=== PATIENT | male | born 1990 | race Two or more races ===

== ENCOUNTER 2017-03-20 | Observation (INO) | payer SELFPAY ==
[2017-03-20] MEDS ORDERED: METRONIDAZOLE 500 MG/NS RTU 100 ML IV ONE (01:17)
[2017-03-20] MEDS ORDERED: CIPROFLOXACIN 400 MG/D5W RTU 400 MG/200 ML RTUPB IV ONE (01:19)
[2017-03-20] MEDS ORDERED: NORMAL SALINE 1000 ML 1,000 ML IV PRN ×3 (01:20→11:09)
[2017-03-20] MEDS ORDERED: MORPHINE SULFATE 10 MG/ML INJ IV ONE (01:21)
[2017-03-20] MEDS ORDERED: ONDANSETRON HCL INJ/PF 4 MG/2 ML SDV IV ONE (01:21)
--- NOTE | 2017-03-20 01:22 | ER Document Report ---
ED GI/ - General Chief Complaint: Rectal Pain Stated Complaint: RECTAL PAIN Time Seen by Provider: 03/20/17 01:09 Notes: Patient is a 27-year-old male presents emergency department complaining of rectal pain. Patient states that he is concerned that he has an abscess in that location. He states he had one previously approximately 2012 that required surgery. Patient states he has had this pain for about 3 days has become more severe. He states he is not able to sit at all. States it hurts to have a bowel movement he has not been able to do so secondary to the pain. Denies any known fevers but admits to chills. Otherwise patient states that he has a history of high blood pressure but does not take medication. TRAVEL OUTSIDE OF THE [place] IN LAST 30 DAYS: No - Related Data Allergies/Adverse Reactions: No Known Allergies Allergy (Verified 04/10/16 19:59) Home Medications: Current Home Medications No Home Medications 03/20/17 [History] Past Medical History - Social History Smoking Status: Smoker,Current Status Unk Family History: CAD, Hyperlipidemia, Hypertension, Other - Coronary artery disease with both grandfathers having MIs in their 40s, and his father having an MA in his 30s Patient has suicidal ideation: No Patient has homicidal ideation: No - Past Medical History Cardiac Medical History: Reports: Hx Hypercholesterolemia - He assumes he has elevated cholesterol based on family history., Hx Hypertension Neurological Medical History: Reports: Hx Migraine Endocrine Medical History: Reports: Hx Diabetes Mellitus Type 2 Renal/ Medical History: Denies: Hx Peritoneal Dialysis Musculoskeltal Medical History: Reports Hx Musculoskeletal Trauma - fx rt leg Past Surgical History: Reports: Hx Abdominal Surgery - Immunizations Hx Diphtheria, Pertussis, Tetanus Vaccination: No Review of Systems - Review of Systems Constitutional: See HPI Cardiovascular: No symptoms reported Respiratory: No symptoms reported Gastrointestinal: See HPI Male Genitourinary: See HPI -: Yes All other systems reviewed and negative Physical Exam - Vital signs Vitals: Temp Pulse Resp BP Pulse Ox 98.6 F 113 H 22 H 140/80 H 100 03/20/17 00:04 03/20/17 00:04 03/20/17 00:04 03/20/17 00:04 03/20/17 00:04 - General General appearance: Appears well, Alert In distress: None - Respiratory Respiratory status: No respiratory distress Chest status: Nontender Breath sounds: Normal Chest palpation: Normal - Cardiovascular Rhythm: Regular Heart sounds: Normal auscultation, S1 appreciated, S2 appreciated Gallop: None auscultated Pulses: Normal: Radial Normal capillary refill: Yes - Abdominal Inspection: Normal Distension: No distension Bowel sounds: Normal Tenderness: Nontender Organomegaly: No organomegaly - Rectal Tenderness: Yes - Tenderness, induration, erythema around the rectum on the left gluteal clef Hemorrhoids: None Prostate: Normal. No: Tender - Skin Skin Temperature: Warm Skin Moisture: Dry Skin irregularity: Abscess - Perirectal abscess with surrounding induration and tenderness Course - Re-evaluation Re-evalutation: 03/20/17 02:05 Patient is a 27-year-old male is hemodynamic stable, no acute distress afebrile. Patient has been discussed with Dr. Hamilton who agrees to admit the patient to be kept n.p.o. initiated on IV antibiotics and IV fluids. Discussed with patient who agrees with plan. Patient to go to the OR later today. - Vital Signs Vital signs: Temp Pulse Resp BP Pulse Ox 98.7 F 88 18 125/45 L 98 03/20/17 03:56 03/20/17 03:56 03/20/17 03:56 03/20/17 03:56 03/20/17 03:52 - Laboratory Result Diagrams: 03/20/17 02:20 03/20/17 02:20 Discharge - Discharge Clinical Impression: Perirectal abscess Condition: Stable Disposition: ADMITTED INPATIENT Admitting Provider: Surgicalist Uday Hamilton Unit Admitted: Surgical Floor
--- NOTE | 2017-03-20 02:02 | PDOC H&P ---
History of Present Illness Admission Date/PCP: 03/20/2017 History of Present Illness: DUSTY MCCORMICK is a 27 year old male who started complaining of left perirectal pains about 3 days ago. Today got worse those he continued to work. At work he was having difficulty ambulating and then went to the emergency room after work. He denies any fever no chills. Admits to having pains with bowel movement. No dysuria. No nausea or vomiting. Past Medical History Cardiac Medical History: Reports: Hyperlipidema - He assumes he has elevated cholesterol based on family history., Hypertension Neurological Medical History: Reports: Migraine Endocrine Medical History: Reports: Diabetes Mellitus Type 2 Past Surgical History Past Surgical History: Had I&D of abscess of the perineal area about 2 years ago Social History Smoking Status: Unknown if Ever Smoked Frequency of Alcohol Use: None Hx Recreational Drug Use: No Family History Family History: CAD, Hyperlipidemia, Hypertension, Other - Coronary artery disease with both grandfathers having MIs in their 40s, and his father having an [place] in his 30s Parental Family History Reviewed: Yes - CAD,DM Children Family History Reviewed: Yes Sibling(s) Family History Reviewed.: Yes Medication/Allergy Home Medications: Prednisone [Deltasone 10 mg Tablet] 10 mg PO ASDIR PRN #33 tablet 05/06/14 Albuterol Sulfate [Albuterol Sulfate Hfa] 1 - 2 puff IH Q4 PRN 05/30/14 Naproxen 500 mg PO BIDP PRN #20 tablet 04/10/15 Promethazine HCl [Phenergan 25 mg Tablet] 0.5 - 1 tab PO Q6H PRN #15 tablet Metoclopramide HCl [Reglan 10 mg Tablet] 2 tab PO Q6HP PRN #30 tablet 09/01/15 Allergies/Adverse Reactions: No Known Allergies Allergy (Verified 04/10/16 19:59) Review of Systems All systems: reviewed and no additional remarkable complaints except as stated Constitutional: PRESENT: other - No fever or chills Eyes: PRESENT: other - No visible disturbances Ears: PRESENT: other - No hearing problems Nose, Mouth, and Throat: PRESENT: sore throat - No sore throat Cardiovascular: PRESENT: chest pain - No chest pain Respiratory: PRESENT: cough - No cough Gastrointestinal: PRESENT: other - No diarrhea, constipation, vomiting or nausea Genitourinary: PRESENT: other - No difficulty voiding Musculoskeletal: PRESENT: other - No joint pain Integumentary: PRESENT: other - Skin rash Neurological: PRESENT: other - No seizures or syncopal episode Psychiatric: PRESENT: other - No anxiety Endocrine: PRESENT: other - No polyuria nor polyphagia or polydipsia Hematologic/Lymphatic: PRESENT: other - No easy bruisability or lymphadenopathy Physical Exam Vital Signs: Temp Pulse Resp BP Pulse Ox 98.6 F 113 H 22 H 140/80 H 100 03/20/17 00:04 03/20/17 00:04 03/20/17 00:04 03/20/17 00:04 03/20/17 00:04 Intake & Output 03/18/17 03/19/17 03/20/17 06:59 06:59 06:59 Weight 122.6 kg General appearance: PRESENT: mild distress, obese Head exam: PRESENT: atraumatic, normocephalic Eye exam: PRESENT: conjunctiva pink, PERRLA Ear exam: PRESENT: normal external ear exam Mouth exam: PRESENT: moist Throat exam: ABSENT: other - No tonsillar enlargement Neck exam: PRESENT: other - Neck is supple and no adenopathy or thyromegaly Respiratory exam: PRESENT: other - No rales or wheezing Cardiovascular exam: PRESENT: RRR, other - Regular rate and rhythm Pulses: PRESENT: normal dorsalis pedis pul Vascular exam: PRESENT: normal capillary refill GI/Abdominal exam: PRESENT: soft, other - Nontender Rectal exam: PRESENT: other - Positive for swelling and redness and tenderness of the left perirectal area and just a little anterior Gentrourinary exam: PRESENT: other - Normal Extremities exam: PRESENT: full ROM Musculoskeletal exam: PRESENT: full ROM Neurological exam: PRESENT: alert, oriented to person, oriented to place, oriented to time, oriented to situation Psychiatric exam: PRESENT: normal mood Focused psych exam: PRESENT: other - Normal affect Skin exam: PRESENT: dry, warm Results Impressions: Left perirectal abscess Assessment & Plan - Diagnosis (1) Perirectal abscess Is this a current diagnosis for this admission?: Yes - Time Time Spent: 30 to 50 Minutes Anticipated discharge: Home Within: within 48 hours - Inpatient Certification Based on my medical assessment, after consideration of the patient's comorbidities, presenting symptoms, or acuity I expect that the services needed warrant INPATIENT care.: Yes I certify that my determination is in accordance with my understanding of Medicare's requirements for reasonable and necessary INPATIENT services [42 CFR 412.3e].: Yes Medical Necessity: Need For IV Fluids, Need for Pain Control, Need for IV Antibiotics, Need for Surgery
[2017-03-20 02:40] LABS: ABSOLUTE BASOPHILS # (AUTO) 0.1 10^3/uL (0.0-0.2); ABSOLUTE EOSINOPHILS # (AUTO) 0.1 10^3/uL (0.0-0.6); ABSOLUTE LYMPHOCYTES (AUTO) 1.7 10^3/uL (0.5-4.7); ABSOLUTE MONOCYTES (AUTO) 1.2 10^3/uL (0.1-1.4); ABSOLUTE NEUT (AUTO) 12.9 10^3/uL (1.7-8.2); BASOPHILS % (AUTO) 0.6 % (0-2); EOSINOPHILS % (AUTO) 0.6 % (0-6); HEMOGLOBIN 14.2 g/dL (13.5-17.0); HGB HCT DIFFERENCE 1.6; LYMPHOCYTES % (AUTO) 10.9 % (13-45); MEAN CORPUSCULAR HEMOGLOBIN 30.5 pg (27.0-33.4); MEAN CORPUSCULAR HGB CONC 34.7 g/dL (32.0-36.0); MEAN CORPUSCULAR VOLUME 88 fl (80-97); MONOCYTES % (AUTO) 7.3 % (3-13); RED BLOOD COUNT 4.66 10^6/uL (4.35-5.55); RED CELL DISTRIBUTION WIDTH 13.8 % (11.5-14.0); SEGMENTED NEUTROPHILS % (AUTO) 80.6 % (42-78)
[2017-03-20 02:56] LABS: ALANINE AMINOTRANSFERASE 32 U/L (21-72); ALBUMIN 4.2 g/dL (3.5-5.0); ALKALINE PHOSPHATASE 88 U/L (38-126); ANION GAP 14 (5-19); ASPARTATE AMINO TRANSFERASE 20 U/L (17-59); BILIRUBIN,DIRECT 0.5 mg/dL (0.0-0.4); BILIRUBIN,TOTAL 0.8 mg/dL (0.2-1.3); BLOOD UREA NITROGEN 15 mg/dL (7-20); CALCIUM 9.3 mg/dL (8.4-10.2); CARBON DIOXIDE 22 mmol/L (22-30); CHLORIDE 107 mmol/L (98-107); CREATININE RESULT 1.02 mg/dL (0.52-1.25); GLUCOSE 159 mg/dL (75-110); POTASSIUM 3.8 mmol/L (3.6-5.0); SODIUM 142.6 mmol/L (137-145); TOTAL PROTEIN 6.9 g/dL (6.3-8.2)
[2017-03-20] MEDS: MORPHINE SULFATE 10 MG/ML INJ IV PRN ×6 (05:00→20:42)
[2017-03-20] MEDS ORDERED: ONDANSETRON HCL INJ/PF 4 MG/2 ML SDV ONE (08:38)
[2017-03-20] MEDS ORDERED: MIDAZOLAM 2 MG/2 ML INJ ONE ×2 (08:38→09:50)
[2017-03-20] MEDS ORDERED: PROPOFOL INJ 200 MG/20 ML VIAL IV ONE (08:38)
[2017-03-20] MEDS ORDERED: FENTANYL CITRATE INJ/PF 100 MCG/2 ML AMPUL ONE (08:38)
[2017-03-20 09:28] LABS: URINE BARBITURATES SCREEN NEGATIVE; URINE METHADONE SCREEN NEGATIVE; URINE PHENCYCLIDINE SCREEN NEGATIVE
[2017-03-20 09:29] LABS: URINE OPIATES LOW UNCONFIRMED POSITIVE
[2017-03-20] MEDS ORDERED: LIDOCAINE 1% INJ-PF (10 MG/ML) 30 ML SDV ONE (09:35)
[2017-03-20] MEDS ORDERED: ONDANSETRON HCL INJ/PF 4 MG/2 ML SDV IV PRN (11:15)
[2017-03-20] MEDS: METRONIDAZOLE 500 MG/NS RTU 100 ML IV SCH ×2 (11:59→18:37)
[2017-03-20] MEDS ORDERED: ACETAMINOPHEN 325 MG TABLET PO PRN (13:29)
[2017-03-20] MEDS ORDERED: ACETAMINOPHEN 325 MG TABLET ONE (13:31)
[2017-03-20] MEDS ORDERED: KETOROLAC TROMETHAMINE INJ/PF 30 MG/1 ML SDV ONE (13:32)
[2017-03-20] MEDS: KETOROLAC TROMETHAMINE INJ/PF 30 MG/1 ML SDV IV SCH ×2 (14:26→21:38)
--- NOTE | 2017-03-20 14:42 | OPERATIVE REPORT E ---
Operative Report NAME: DUSTY MCCORMICK : 1990 AGE: 27Y DATE OF SURGERY: 03/20/2017 ROOM: 425 PREOPERATIVE DIAGNOSIS: Abscess left perirectal and perineal area. POSTOPERATIVE DIAGNOSIS: Abscess left perirectal and perineal area. OPERATION: Incision and drainage of left perirectal and perineal abscess. SURGEON: MARQUIS FARMER M.D. ANESTHESIA: Local MAC INDICATIONS: This is a 27-year-old quite obese male who complained of pains along the left perirectal area for the past 3 to 4 days. Patient apparently took cocaine about 3 to 4 days ago. His urine toxicology is positive and therefore Anesthesia decided to just give him MAC and for me to give 1% Xylocaine without epinephrine. PROCEDURE: After adequate IV sedation, patient was placed in lithotomy position and the perineal area prepped and draped in the usual sterile fashion. Local anesthesia infiltrated over the inflamed area of the left perirectal area towards the perineum. The swelling roughly measured about 10 cm long. It was through a previous thickened scar of this area. Local anesthesia, about 30 mL, was then infiltrated over the previous scar and an incision was made. The incision was made after appropriate timeout was called. The subcu and scarring was quite thick, worsened with the 30 ccs of local anesthesia, roughly about 2 to 3 cm deep. Finally, I was able to break into a pocket of pus which was foul-smelling, yellowish, dark fluid. Cultures were obtained. The pocket was dilated and palpated with the index finger and tunnelling up into the area of the perineum. The pocket area was further enlarged with scissors but unfortunately, patient has been quite uncooperative and Anesthesia was not willing to give more sedation because of the presence of cocaine in his urine. Therefore, the area was then irrigated with saline solution and iodoform packing was placed. I thought the area is completely drained of pus. This may be a temporary procedure just to emergently relieve the abscess site but unfortunately unable to extend the incision as far proximally to the perineum as possible because of patient moving. . At any rate, the area was then packed with 1/2-inch iodoform gauze, almost a whole bottle of gauze was placed. The area was then covered with sterile 4 x 4 and ABD pad. Patient tolerated relatively well. Needle, instrument, and sponge count were all correct. Estimated blood loss was about 30 mL. The patient was brought back to the Recovery Room in satisfactory condition. DICTATING PHYSICIAN: MARQUIS FARMER M.D. [id number] PHY#: [id number] ID: [id number] JOB#: [id number] ACCT: [id number] cc:MARQUIS FARMER M.D. > MTDD
[2017-03-20] MEDS: CIPROFLOXACIN 400 MG/D5W RTU 400 MG/200 ML RTUPB IV SCH (17:20)
[2017-03-21] MEDS: MORPHINE SULFATE 10 MG/ML INJ IV PRN ×7 (00:25→23:38)
[2017-03-21] MEDS: METRONIDAZOLE 500 MG/NS RTU 100 ML IV SCH ×3 (02:19→17:05)
[2017-03-21 04:48] LABS: URINE BARBITURATES SCREEN NEGATIVE; URINE METHADONE SCREEN NEGATIVE; URINE PHENCYCLIDINE SCREEN NEGATIVE
[2017-03-21 04:56] LABS: URINE OPIATES LOW UNCONFIRMED POSITIVE
[2017-03-21] MEDS: CIPROFLOXACIN 400 MG/D5W RTU 400 MG/200 ML RTUPB IV SCH ×2 (05:19→18:11)
[2017-03-21] MEDS: KETOROLAC TROMETHAMINE INJ/PF 30 MG/1 ML SDV IV SCH ×3 (05:21→21:09)
[2017-03-21 05:30] LABS: ABSOLUTE EOSINOPHILS # (AUTO) 0.4 10^3/uL (0.0-0.6); ABSOLUTE LYMPHOCYTES (AUTO) 1.5 10^3/uL (0.5-4.7); ABSOLUTE MONOCYTES (AUTO) 0.8 10^3/uL (0.1-1.4); ABSOLUTE NEUT (AUTO) 8.4 10^3/uL (1.7-8.2); BASOPHILS % (AUTO) 0.4 % (0-2); EOSINOPHILS % (AUTO) 3.5 % (0-6); HEMATOCRIT 38.8 % (37.9-51.0); HEMOGLOBIN 13.8 g/dL (13.5-17.0); HGB HCT DIFFERENCE 2.6; LYMPHOCYTES % (AUTO) 13.3 % (13-45); MEAN CORPUSCULAR HEMOGLOBIN 31.4 pg (27.0-33.4); MEAN CORPUSCULAR HGB CONC 35.5 g/dL (32.0-36.0); MEAN CORPUSCULAR VOLUME 88 fl (80-97); RED CELL DISTRIBUTION WIDTH 13.7 % (11.5-14.0); SEGMENTED NEUTROPHILS % (AUTO) 75.8 % (42-78)
[2017-03-21 05:55] LABS: GLUCOSE 144 mg/dL (75-110); POTASSIUM 4.3 mmol/L (3.6-5.0)
[2017-03-21 05:56] LABS: BLOOD UREA NITROGEN 12 mg/dL (7-20); CALCIUM 8.4 mg/dL (8.4-10.2); CARBON DIOXIDE 25 mmol/L (22-30); CREATININE RESULT 0.94 mg/dL (0.52-1.25); SODIUM 138.9 mmol/L (137-145)
[2017-03-21 06:10] LABS: ANION GAP 6 (5-19); CHLORIDE 108 mmol/L (98-107)
--- NOTE | 2017-03-21 10:07 | PDOC PROGRESS REPORT ---
Subjective Progress Note for:: 03/21/17 Subjective:: Patient states he is better. He has not changed his initial wound packing. Physical Exam Vital Signs: Temp Pulse Resp BP Pulse Ox 98.4 F 87 16 129/71 H 99 03/21/17 08:05 03/21/17 08:05 03/21/17 08:05 03/21/17 08:05 03/21/17 08:05 Intake & Output 03/20/17 03/21/17 03/22/17 06:59 06:59 06:59 Intake Total 0 4447 Output Total 2 1835 Balance -2 2612 General appearance: PRESENT: no acute distress GI/Abdominal exam: PRESENT: other - Patient examined supine position, perineum exposed. There is no evidence of cellulitis. There is some scar from previous surgery, and thickened tissue. The wound packing is removed and there is a nice 3 x 7 cm open area approximately 4 cm deep, with beefy red granulation tissue. Results Laboratory Results: 03/21/17 05:10 03/21/17 05:10 03/21/17 03/21/17 05:10 05:10 WBC 11.0 H RBC 4.40 Hgb 13.8 Hct 38.8 MCV 88 MCH 31.4 MCHC 35.5 RDW 13.7 Plt Count 185 Seg Neutrophils % 75.8 Lymphocytes % 13.3 Monocytes % 7.0 Eosinophils % 3.5 Basophils % 0.4 Absolute Neutrophils 8.4 H Absolute Lymphocytes 1.5 Absolute Monocytes 0.8 Absolute Eosinophils 0.4 Absolute Basophils 0.0 Sodium 138.9 Potassium 4.3 Chloride 108 H Carbon Dioxide 25 Anion Gap 6 BUN 12 Creatinine 0.94 Est GFR ( Amer) > 60 Est GFR (Non-Af Amer) > 60 Glucose 144 H Calcium 8.4 Assessment & Plan - Diagnosis (1) Perirectal abscess Is this a current diagnosis for this admission?: Yes Plan: Technically base of scrotum, perineal wound, open widely, adequately drained, no indication for further debridement today Recommendations: 1. Get patient in shower with scrub brush, nausea area and repack 2. Continue intravenous antibiotics today, consider discharge home later today or tomorrow 3. We will start stool softener.
[2017-03-21] MEDS: DOCUSATE SODIUM 100 MG CAPSULE PO SCH (17:05)
[2017-03-22] MEDS: METRONIDAZOLE 500 MG/NS RTU 100 ML IV SCH ×2 (00:50→09:53)
[2017-03-22] MEDS: MORPHINE SULFATE 10 MG/ML INJ IV PRN ×3 (01:32→08:36)
[2017-03-22] MEDS: KETOROLAC TROMETHAMINE INJ/PF 30 MG/1 ML SDV IV SCH (05:19)
[2017-03-22] MEDS: CIPROFLOXACIN 400 MG/D5W RTU 400 MG/200 ML RTUPB IV SCH (05:25)
[2017-03-22] MEDS: DOCUSATE SODIUM 100 MG CAPSULE PO SCH (09:53)
[2017-03-22 10:01] VITALS: BP 137/72
--- NOTE | 2017-03-22 15:58 | PDOC DISCHARGE SUMMARY ---
Discharge Summary (SDC) - Discharge Final Diagnosis: Left perirectal/perineal abscess Date of Surgery: 03/20/17 Discharge Date: 03/22/17 Condition: Good Forms: Discharge POC-Adult, Return to Work Treatment or Instructions: 1. Continue with the daily changing of the packing. #2 continue with p.o. Cipro 500 mg twice a day for 10 days. 3. Follow-up in the surgical clinic care of Desiree OLSON in about a week 4. Patient to avoid heavy lifting more than 15 pounds for the next few days. Prescriptions: Ciprofloxacin HCl [Cipro 500 mg Tablet] 500 mg PO Q12A 10 Days tablet Referrals: [facility] [Provider Group] - 03/29/17 11:00 am Discharge Diet: Regular Respiratory Treatments at Home: Deep Breathing/Coughing Discharge Activity: Activity As Tolerated, Balance Activity w/Rest Home Care Assistance: None Needed Report the Following to Your Physician Immediately: Increase in Pain, Fever over 101 Degrees, Unusual Bleeding, Redness, Swelling, Warmth, Increased Soreness, Drainage-Foul Smelling
[2017-03-22] MEDS ORDERED: CIPROFLOXACIN HCL 500 MG TABLET PO SCH (18:00)
== END 2017-03-22 10:21 | disposition home or self-care (01) ==
LOC: ER → INTOOBSV 01:50 → UNDOADMOB 01:50 → EH 01:50 → 4S 03:40 → EH 04:24 → 4S 04:24
PROVIDERS: ATTEND Surgery
PROC: 0J9B0ZZ Drainage of Perineum Subcutaneous Tissue and Fascia, Open Approach (ICD-10-PCS; 2017-03-20)
PROC: 0D9P0ZX Drainage of Rectum, Open Approach, Diagnostic (ICD-10-PCS; principal; 2017-03-20 09:00)
DX: K61.1 Rectal abscess (principal); L02.215 Cutaneous abscess of perineum; R78.2 Finding of cocaine in blood; E66.9 Obesity, unspecified; F17.200 Nicotine dependence, unspecified, uncomplicated; Z68.41 Body mass index [BMI] 40.0-44.9, adult
CPT/HCPCS: 99284; 36415 ×2; 87040; 87070; 87205; 82962; 85025 ×2; 87075; 87077; 80048; 80053; 87186; 80307 ×2; 83605; 94799; 46040; 10060; G0378 ×3; A6266; J2250; J3010; J3490 ×2; J1885 ×2; J2270 ×3; J2405 ×2; J7030; J2704; J0744 ×3; 902

== ENCOUNTER 2018-03-11 15:16 | Emergency (ER) | payer SELFPAY ==
[2018-03-11] MEDS ORDERED: IPRATROPIUM/ALBUTEROL 0.5-2.5 MG/3 ML AMPUL NEB ONE (15:58)
[2018-03-11] MEDS ORDERED: PREDNISONE 20 MG TABLET PO ONE (15:59)
--- NOTE | 2018-03-11 15:59 | ER Document Report ---
ED Respiratory Problem - General Chief Complaint: Nausea/Vomiting/Diarrhea Stated Complaint: DIFFICULTY BREATHING, HEADACHE, DIARRHEA Time Seen by Provider: 03/11/18 15:57 Notes: 28-year-old male to the emergency department for evaluation of cough, wheeze and shortness of breath. Patient smokes cigarettes and smokes weed. Has been coughing excessively over the last several days. Intermittent chills and sweats. No vomiting. No chest pain. Just feels tightness in the chest with wheezing and cough. TRAVEL OUTSIDE OF THE [place] IN LAST 30 DAYS: No - HPI Patient complains to provider of: Cough, Hurts to breath, Short of breath Severity: Moderate Context: Smoker Short of Breath: Moderate Chest pain/discomfort: Constant Associated symptoms: None - Related Data Allergies/Adverse Reactions: No Known Allergies Allergy (Verified 03/11/18 15:18) Past Medical History - General Information source: Patient - Social History Smoking Status: Current Every Day Smoker Frequency of alcohol use: Social Drug Abuse: Marijuana Family History: CAD, Hyperlipidemia, Hypertension, Other - Coronary artery disease with both grandfathers having MIs in their 40s, and his father having an [place] in his 30s Patient has suicidal ideation: No Patient has homicidal ideation: No - Past Medical History Cardiac Medical History: Reports: Hx Hypercholesterolemia - He assumes he has elevated cholesterol based on family history., Hx Hypertension Neurological Medical History: Reports: Hx Migraine Endocrine Medical History: Reports: Hx Diabetes Mellitus Type 2 Renal/ Medical History: Denies: Hx Peritoneal Dialysis Musculoskeletal Medical History: Reports Hx Musculoskeletal Trauma - fx rt leg Past Surgical History: Reports: Hx Abdominal Surgery - Immunizations Hx Diphtheria, Pertussis, Tetanus Vaccination: No Review of Systems - Review of Systems Notes: Constitutional: denies: Chills, Diaphoresis, Fever, Malaise, Weakness. Complaining of sweating and chills EENT: denies: Eye discharge, Blurred vision, Tearing, Double vision, Nose congestion, Nose discharge, Throat swelling, Mouth pain Cardiovascular: denies: Palpitations, Heart racing, Orthopnea, denies chest pain but does have shortness of breath Respiratory: Complaining of cough, tightness in the chest, shortness of breath, wheezing Gastrointestinal: denies: Abdominal pain, Diarrhea, Nausea, Vomiting, Black stools, bright red blood in stool Genitourinary: denies: Burning, Dysuria, Discharge, Frequency, Flank pain, Hematuria Musculoskeletal: denies: Joint pain, Joint swelling, Muscle pain, Muscle stiffness, back pain Hematologic/Lymphatic: denies: Anemia, Easy bleeding, Easy bruising, Blood clots Neurological/Psychological: denies: Confusion, Dementia, Depression, Loss of consciousness Skin: No lesions, no masses, no skin breakdown, no abscesses Physical Exam - Vital signs Vitals: Temp Pulse Resp BP Pulse Ox 97.7 F 111 H 20 146/90 H 94 03/11/18 15:20 03/11/18 15:20 03/11/18 15:20 03/11/18 15:20 03/11/18 15:20 Interpretation: Tachycardic - General General appearance: Appears well, Alert - HEENT Head: Normocephalic, Atraumatic Eyes: Normal Pupils: PERRL - Respiratory Respiratory status: No respiratory distress Chest status: Nontender Breath sounds: Decreased air movement, Nonproductive cough, Wheezing Chest palpation: Normal - Cardiovascular Rhythm: Tachycardia Heart sounds: Normal auscultation Murmur: No - Abdominal Inspection: Normal Distension: No distension Bowel sounds: Normal Tenderness: Nontender Organomegaly: No organomegaly - Back Back: Normal, Nontender - Extremities General upper extremity: Normal inspection, Nontender, Normal color, Normal ROM , Normal temperature General lower extremity: Normal inspection, Nontender, Normal color, Normal ROM , Normal temperature, Normal weight bearing. No: Claudine's sign - Neurological Neuro grossly intact: Yes Cognition: Normal Orientation: AAOx4 [place] Coma Scale Eye Opening: Spontaneous Ana Coma Scale Verbal: Oriented Ana Coma Scale Motor: Obeys Commands Ana Coma Scale Total: 15 Speech: Normal Motor strength normal: LUE, RUE, LLE, RLE Sensory: Normal - Psychological Associated symptoms: Normal affect, Normal mood - Skin Skin Temperature: Warm Skin Moisture: Dry Skin Color: Normal Course - Re-evaluation Re-evalutation: 03/11/18 16:19 Patient with audible wheezing coughing. Is a smoker. Will get an Accu-Chek, breathing treatment, prednisone, chest x-ray and reassess. 03/11/18 17:28 Chest X-Ray 03/11/18 15:58 IMPRESSION: NO ACUTE RADIOGRAPHIC FINDING IN THE CHEST. NODULE IN THE RIGHT LOWER LOBE STABLE AND UNCHANGED SINCE APRIL 2014, POSSIBLY A GRANULOMA. 03/11/18 17:28 Chest x-ray is unremarkable and unchanged. Patient has not been observed coughing or any major respiratory distress at this time. Prednisone is been given. Breathing treatments given. Will discharge on same as well as putting him on antibiotic based on his compromised immune status from his morbid obesity and diabetes. - Vital Signs Vital signs: Temp Pulse Resp BP Pulse Ox 97.7 F 111 H 20 146/90 H 94 03/11/18 15:20 03/11/18 15:20 03/11/18 15:20 03/11/18 15:20 03/11/18 15:20 - Laboratory Laboratory results interpreted by me: 03/11/18 17:30 POC Glucose 161 H Discharge - Discharge Clinical Impression: Bronchitis Condition: Good Disposition: HOME, SELF-CARE Instructions: Bronchitis With Bronchospasm (Wheezing) ([facility]) Additional Instructions: In the event that symptoms are getting worse, you develop worsening breathing, worsening shortness of breath, chest pain or other issues please follow-up with your regular doctor return immediately for emergency department for repeat evaluation and treatment. Prescriptions: Albuterol Sulfate [Ventolin HFA MDI 18 GM] 1 - 2 puff IH Q4H PRN #1 mdi PRN Reason: Azithromycin 250 mg PO DAILY 5 Days #6 tablet Prednisone [Deltasone] 60 mg PO DAILY 5 Days #15 tablet
--- NOTE | 2018-03-11 17:20 | RADIOLOGY REPORT (SQ) ---
EXAM DESCRIPTION: CHEST 2 VIEWS COMPLETED DATE/TIME: 03/11/2018 5:03 pm REASON FOR STUDY: sob COMPARISON: 04/10/2016 and 05/06/2014. EXAM PARAMETERS: NUMBER OF VIEWS: two views TECHNIQUE: Digital Frontal and Lateral radiographic views of the chest acquired. RADIATION DOSE: NA LIMITATIONS: none FINDINGS: LUNGS AND PLEURA: Stable nodule in the right lower lobe. No opacities, masses or pneumoth orax. No pleural effusion. MEDIASTINUM AND HILAR STRUCTURES: No masses or contour abnormalities. HEART AND VASCULAR STRUCTURES: Heart normal size. No evidence for failure. BONES: No acute findings. HARDWARE: None in the chest. OTHER: No other significant finding. IMPRESSION: NO ACUTE RADIOGRAPHIC FINDING IN THE CHEST. NODULE IN THE RIGHT LOWER LOBE STABLE AND U NCHANGED SINCE APRIL 2014, POSSIBLY A GRANULOMA. TECHNICAL DOCUMENTATION: JOB ID: [id number] [employer]- All Rights Reserved Reading location - IP/workstation name: [email or web address]
[2018-03-11] MEDS ORDERED: AZITHROMYCIN 250 MG TABLET PO ONE (17:48)
[2018-03-11] MEDS ORDERED: ALBUTEROL SULFATE HFA (90 MCG/PUFF) 200 PUFF/8.5 GM MDI IH ONE (17:48)
[2018-03-11 18:47] VITALS: BP 132/73
== END 2018-03-11 18:30 | disposition home or self-care (01) ==
LOC: ER 15:16
DX: J40 Bronchitis, not specified as acute or chronic (principal); R05 Cough; R06.02 Shortness of breath; F17.210 Nicotine dependence, cigarettes, uncomplicated; F12.10 Cannabis abuse, uncomplicated; R07.89 Other chest pain; R06.2 Wheezing; I10 Essential (primary) hypertension; E11.9 Type 2 diabetes mellitus without complications; R00.0 Tachycardia, unspecified; E66.01 Morbid (severe) obesity due to excess calories; Z68.41 Body mass index [BMI] 40.0-44.9, adult; R91.1 Solitary pulmonary nodule; Z82.49 Family history of ischemic heart disease and other diseases of the circulatory system
CPT/HCPCS: 94640; 99284; 82962; 71046; J7512; J3490; J7620

== ENCOUNTER 2018-07-22 09:59 | Emergency (ER) | payer OTHER ==
[2018-07-22 10:07] VITALS: BP 152/88
[2018-07-22] MEDS ORDERED: ACETAMINOPHEN 325 MG TABLET PO ONE (10:08)
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
== END 2018-07-22 12:05 | disposition home or self-care (01) ==
LOC: ER 09:59
DX: M54.5 Low back pain (principal); M79.10 Myalgia, unspecified site; M79.671 Pain in right foot; M79.672 Pain in left foot; M79.661 Pain in right lower leg; M79.662 Pain in left lower leg; V43.51XA Car driver injured in collision with sport utility vehicle in traffic accident, initial encounter; I10 Essential (primary) hypertension; E11.9 Type 2 diabetes mellitus without complications; Z87.81 Personal history of (healed) traumatic fracture
CPT/HCPCS: 72110; 99283

== ENCOUNTER 2019-01-05 21:47 | Emergency (ER) | payer SELFPAY ==
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
[2019-01-06 05:57] VITALS: BP 133/67
== END 2019-01-06 01:01 | disposition left against medical advice (07) ==
LOC: ER 21:47
DX: T40.601A Poisoning by unspecified narcotics, accidental (unintentional), initial encounter (principal); R11.0 Nausea; C62.90 Malignant neoplasm of unspecified testis, unspecified whether descended or undescended; E11.9 Type 2 diabetes mellitus without complications; I10 Essential (primary) hypertension; Z53.20 Procedure and treatment not carried out because of patient's decision for unspecified reasons
CPT/HCPCS: 99281

== ENCOUNTER 2019-05-23 15:06 | Emergency (ER) | payer SELFPAY ==
[2019-05-23] MEDS ORDERED: OXYCODONE-ACETAMINOPHEN 5-325 MG TABLET PO ONE (15:43)
--- NOTE | 2019-05-23 15:47 | ER Document Report ---
ED Medical Screen (RME) - General Chief Complaint: Cyst Stated Complaint: POSSIBLE CYST Time Seen by Provider: 05/23/19 15:38 Mode of Arrival: Ambulatory Information source: Patient Notes: 29-year-old male presents emergency department with reports of a perirectal abscess. He reports he has had it before. Reports he is had 3 surgeries due to this. Reports symptoms started 4 days ago. He reports he has intense pain. Unable to sit down. Denies fever vomiting diarrhea. Last bowel movement was this morning was bloody. I have greeted and performed a rapid initial assessment of this patient. A comprehensive ED assessment and evaluation of the patient, analysis of test results and completion of the medical decision making process will be conducted by additional ED providers. Dictation of this chart was performed using voice recognition software; therefore, there may be some unintended grammatical errors. TRAVEL OUTSIDE OF THE [place] IN LAST 30 DAYS: No - Related Data Allergies/Adverse Reactions: No Known Allergies Allergy (Verified 07/22/18 10:00) Past Medical History - Social History Chew tobacco use (# tins/day): No Frequency of alcohol use: None Drug Abuse: None - Past Medical History Cardiac Medical History: Reports: Hx Hypercholesterolemia - He assumes he has elevated cholesterol based on family history., Hx Hypertension Neurological Medical History: Reports: Hx Migraine Endocrine Medical History: Reports: Hx Diabetes Mellitus Type 2 Renal/ Medical History: Denies: Hx Peritoneal Dialysis Musculoskeltal Medical History: Reports Hx Musculoskeletal Trauma - fx rt leg Past Surgical History: Reports: Hx Abdominal Surgery - Immunizations Hx Diphtheria, Pertussis, Tetanus Vaccination: No Physical Exam - Vital signs Vitals: Temp Pulse Resp BP Pulse Ox 98.0 F 94 18 144/99 H 99 05/23/19 15:24 05/23/19 15:24 05/23/19 15:24 05/23/19 15:24 05/23/19 15:24 Course - Vital Signs Vital signs: Temp Pulse Resp BP Pulse Ox 98.0 F 94 18 144/99 H 99 05/23/19 15:40 05/23/19 15:40 05/23/19 15:40 05/23/19 15:40 05/23/19 15:40
[2019-05-23] MEDS ORDERED: ONDANSETRON HCL INJ/PF 4 MG/2 ML SDV IV ONE (20:45)
[2019-05-23] MEDS ORDERED: MORPHINE SULFATE 10 MG/ML INJ IV ONE (20:45)
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
[2019-05-23 21:14] LABS: ABSOLUTE BASOPHILS # (AUTO) 0.1 10^3/uL (0.0-0.2); ABSOLUTE EOSINOPHILS # (AUTO) 0.4 10^3/uL (0.0-0.6); ABSOLUTE MONOCYTES (AUTO) 0.9 10^3/uL (0.1-1.4); BASOPHILS % (AUTO) 0.9 % (0-2); EOSINOPHILS % (AUTO) 2.8 % (0-6); HEMATOCRIT 46.1 % (37.9-51.0); HEMOGLOBIN 15.8 g/dL (13.5-17.0); LYMPHOCYTES % (AUTO) 22.5 % (13-45); MEAN CORPUSCULAR HGB CONC 34.3 g/dL (32.0-36.0); MEAN CORPUSCULAR VOLUME 88 fl (80-97); MONOCYTES % (AUTO) 6.9 % (3-13); PLATELET COUNT 287 10^3/uL (150-450); RED BLOOD COUNT 5.27 10^6/uL (4.35-5.55); SEGMENTED NEUTROPHILS % (AUTO) 66.9 % (42-78); TOTAL CELLS COUNTED % (AUTO) 100 %; WHITE BLOOD COUNT 13.5 10^3/uL (4.0-10.5)
[2019-05-23 21:29] LABS: ANION GAP 10 (5-19); BLOOD UREA NITROGEN 16 mg/dL (7-20); CALCIUM 9.4 mg/dL (8.4-10.2); CARBON DIOXIDE 25 mmol/L (22-30); CHLORIDE 104 mmol/L (98-107); GLUCOSE 126 mg/dL (75-110); POTASSIUM 4.2 mmol/L (3.6-5.0)
[2019-05-23] MEDS ORDERED: CEFTRIAXONE 1 GM/D5W RTU 1 GM/50 ML RTUPB IV ONE (21:45)
[2019-05-23] MEDS ORDERED: SULFAMETHOXAZOLE/TRIMETHOPRIM 800-160 MG TABLET PO ONE (21:45)
[2019-05-23 22:19] VITALS: BP 139/80
== END 2019-05-23 22:18 | disposition home or self-care (01) ==
LOC: ER 15:06
DX: L02.91 Cutaneous abscess, unspecified (principal); R10.2 Pelvic and perineal pain; D72.828 Other elevated white blood cell count; L90.5 Scar conditions and fibrosis of skin; Z98.890 Other specified postprocedural states; E11.9 Type 2 diabetes mellitus without complications; I10 Essential (primary) hypertension
CPT/HCPCS: 99284; 96374; 96375; 36415; 85025; 80048; J2270; J2405; J0696

== ENCOUNTER 2019-05-26 05:02 | Observation (INO) | payer SELFPAY ==
[2019-05-26] MEDS ORDERED: ONDANSETRON HCL INJ/PF 4 MG/2 ML SDV IV ONE (05:42)
[2019-05-26] MEDS ORDERED: MORPHINE SULFATE 10 MG/ML INJ IV ONE ×2 (05:42→07:27)
--- NOTE | 2019-05-26 05:44 | ER Document Report ---
ED Skin Rash/Insect Bite/Abscs - General Chief Complaint: Rectal Abscess Stated Complaint: RECTAL CYST Time Seen by Provider: 05/26/19 05:38 Notes: Patient is a 29 year old male that comes to the emergency department for chief complaint of pain and swelling with suspected abscess in the perineum area. Patient states this has been worsening for about a week, he was seen here approximately 3 days ago and no drainable abscess was noted at that time therefore he was placed on doxycycline and Bactrim and he was going to follow-up with the surgical clinic, he states he was going to go on Tuesday. However over the past day the area has become swollen and much more tender, area has become much worse with spreading. Patient states he had chills this morning as well but he denies fever. He denies vomiting. He denies any other complaints. Patient states that he had surgery on the same area for an abscess most recently by Dr. Hamilton in this facility. Patient states he is a diet-controlled diabetic, denies any daily medications, denies any other medical history. He denies history of IV drug abuse. TRAVEL OUTSIDE OF THE [place] IN LAST 30 DAYS: No - Related Data Allergies/Adverse Reactions: No Known Allergies Allergy (Verified 07/22/18 10:00) Home Medications: Taking meds prescribed during last visit Past Medical History - General Information source: Patient - Social History Smoking Status: Never Smoker Drug Abuse: None Lives with: Family Family History: CAD, Hyperlipidemia, Hypertension, Other - Coronary artery disease with both grandfathers having MIs in their 40s, and his father having an [place] in his 30s Patient has suicidal ideation: No Patient has homicidal ideation: No - Past Medical History Cardiac Medical History: Reports: Hx Hypercholesterolemia - He assumes he has elevated cholesterol based on family history., Hx Hypertension Neurological Medical History: Reports: Hx Migraine Endocrine Medical History: Reports: Hx Diabetes Mellitus Type 2 Renal/ Medical History: Denies: Hx Peritoneal Dialysis Musculoskeletal Medical History: Reports Hx Musculoskeletal Trauma - fx rt leg Past Surgical History: Reports: Hx Abdominal Surgery - Immunizations Hx Diphtheria, Pertussis, Tetanus Vaccination: Yes Review of Systems - Review of Systems Constitutional: No symptoms reported EENT: No symptoms reported Cardiovascular: No symptoms reported Respiratory: No symptoms reported Gastrointestinal: No symptoms reported Genitourinary: No symptoms reported Male Genitourinary: No symptoms reported Musculoskeletal: No symptoms reported Skin: See HPI Hematologic/Lymphatic: No symptoms reported Neurological/Psychological: No symptoms reported Physical Exam - Vital signs Vitals: Temp Pulse Resp BP Pulse Ox 99.3 F 117 H 20 153/98 H 98 05/26/19 05:02 05/26/19 05:02 05/26/19 05:02 05/26/19 05:02 05/26/19 05:02 - Notes Notes: GENERAL: Mildly uncomfortable in appearance HEAD: Normocephalic, atraumatic. EYES: Pupils equal, round, and reactive to light. Extraocular movements intact. ENT: Oral mucosa moist, tongue midline. Oropharynx unremarkable. Airway patent. LUNGS: Clear to auscultation bilaterally, no wheezes, rales, or rhonchi. No respiratory distress. HEART: Borderline tachycardia, normal rhythm, no murmur ABDOMEN: Soft, non-tender. Non-distended. GENITOURINARY: No concerning findings noted over the genitals or scrotum. Over the perineum however there is an indurated, fluctuant, erythematous, tender area that extends back towards the edge of the buttocks but does not specifically go to the perianal area. EXTREMITIES: Moves all 4 extremities spontaneously. No edema, normal radial and dorsalis pedis pulses bilaterally. No cyanosis. BACK: no cervical, thoracic, lumbar midline tenderness. No saddle anesthesia, normal distal neurovascular exam. Moves all extremities in full range of motion. NEUROLOGICAL: Alert and oriented x3. Normal speech. Cranial nerves II through XII grossly intact. PSYCH: Normal affect, normal mood. SKIN: Warm, dry, normal turgor. No rashes or lesions noted. Course - Re-evaluation Re-evalutation: Patient's abscess over the perineum is much worse compared to 3 days ago. Leukocytosis slightly worse, patient has some elevated glucose as well without acidosis. Vital signs unremarkable except for some tachycardia. Discussed with Dr. Kraus, he states he will evaluate the patient. He is in a case and this will be a little while, patient was started on antibiotics. Patient is much more comfortable after pain medication. He will be kept n.p.o., he has been n.p.o. since last night. Dr. Kraus is excepting the patient, patient will be accepted to the operating room in observation status. Patient states understanding and agreement with plan. - Vital Signs Vital signs: Temp Pulse Resp BP Pulse Ox 99.3 F 117 H 20 153/98 H 98 05/26/19 05:02 05/26/19 05:02 05/26/19 05:02 05/26/19 05:02 05/26/19 05:02 - Laboratory Result Diagrams: 05/26/19 05:50 05/26/19 05:50 Laboratory results interpreted by me: 05/26/19 05/26/19 05:50 05:50 WBC 14.2 H Lymph % (Auto) 10.0 L Absolute Neuts (auto) 11.4 H Seg Neutrophils % 80.3 H Glucose 228 H Discharge - Discharge Clinical Impression: Abscess, perineum Condition: Stable Disposition: ADMITTED OBSERVATION Admitting Provider: Surgicalist Unit Admitted: OR
[2019-05-26 06:05] LABS: ABSOLUTE BASOPHILS # (AUTO) 0.1 10^3/uL (0.0-0.2); ABSOLUTE EOSINOPHILS # (AUTO) 0.3 10^3/uL (0.0-0.6); ABSOLUTE LYMPHOCYTES (AUTO) 1.4 10^3/uL (0.5-4.7); ABSOLUTE NEUT (AUTO) 11.4 10^3/uL (1.7-8.2); BASOPHILS % (AUTO) 0.7 % (0-2); HEMATOCRIT 45.8 % (37.9-51.0); HEMOGLOBIN 15.9 g/dL (13.5-17.0); MEAN CORPUSCULAR HEMOGLOBIN 30.5 pg (27.0-33.4); MEAN CORPUSCULAR HGB CONC 34.6 g/dL (32.0-36.0); MEAN CORPUSCULAR VOLUME 88 fl (80-97); PLATELET COUNT 290 10^3/uL (150-450); RED BLOOD COUNT 5.21 10^6/uL (4.35-5.55); RED CELL DISTRIBUTION WIDTH 12.7 % (11.5-14.0); SEGMENTED NEUTROPHILS % (AUTO) 80.3 % (42-78); TOTAL CELLS COUNTED % (AUTO) 100 %; WHITE BLOOD COUNT 14.2 10^3/uL (4.0-10.5)
[2019-05-26 06:20] LABS: ANION GAP 10 (5-19); BLOOD UREA NITROGEN 15 mg/dL (7-20); CALCIUM 9.1 mg/dL (8.4-10.2); CARBON DIOXIDE 24 mmol/L (22-30); CHLORIDE 104 mmol/L (98-107); GLUCOSE 228 mg/dL (75-110); POTASSIUM 4.6 mmol/L (3.6-5.0)
[2019-05-26] MEDS ORDERED: CEFTRIAXONE 1 GM/D5W RTU 1 GM/50 ML RTUPB IV ONE (06:25)
[2019-05-26] MEDS ORDERED: VANCOMYCIN HCL INJ 1000 MG VIAL IV ONE (06:25)
[2019-05-26] MEDS ORDERED: NORMAL SALINE 1000 ML 1,000 ML IV ONE (07:27)
--- NOTE | 2019-05-26 07:32 | PDOC H&P ---
History of Present Illness Admission Date/PCP: 05/26/2019 History of Present Illness: DUSTY MCCORMICK is a 29 year old male that comes to the emergency department for chief complaint of pain and swelling with suspected abscess in the perineum area. Patient states this has been worsening for about a week, he was seen here approximately 3 days ago and no drainable abscess was noted at that time therefore he was placed on doxycycline and Bactrim and he was going to follow-up with the surgical clinic, he states he was going to go on Tuesday. However over the past day the area has become swollen and much more tender, area has become much worse with spreading. Patient states he had chills this morning as well but he denies fever. He denies vomiting. He denies any other complaints. Patient states that he had surgery on the same area for an abscess most recently by Dr. Hamilton in this facility. Patient states he is a diet-controlled diabetic, denies any daily medications, denies any other medical history. He denies history of IV drug abuse. Past Medical History Cardiac Medical History: Reports: Hyperlipidema - He assumes he has elevated cholesterol based on family history., Hypertension Neurological Medical History: Reports: Migraine Endocrine Medical History: Reports: Diabetes Mellitus Type 2 Past Surgical History Past Surgical History: Reports: Other - previous perineal abscess drained x2 Social History Smoking Status: Unknown if Ever Smoked Frequency of Alcohol Use: None Hx Recreational Drug Use: Yes Drugs: Cocaine, Marijuana Hx Prescription Drug Abuse: No Family History Family History: CAD, Hyperlipidemia, Hypertension, Other - Coronary artery disease with both grandfathers having MIs in their 40s, and his father having an [place] in his 30s Parental Family History Reviewed: No Children Family History Reviewed: NA Sibling(s) Family History Reviewed.: NA Medication/Allergy Home Medications: Ciprofloxacin HCl [Cipro 500 mg Tablet] 500 mg PO Q12A 10 Days tablet 03/22/17 Albuterol Sulfate [Ventolin HFA MDI 18 GM] 1 - 2 puff IH Q4H PRN #1 mdi 03/11/18 Azithromycin 250 mg PO DAILY 5 Days #6 tablet 03/11/18 Prednisone [Deltasone] 60 mg PO DAILY 5 Days #15 tablet 03/11/18 Cyclobenzaprine HCl [Flexeril 5 mg Tablet] 5 mg PO TID #9 tablet 07/22/18 Ibuprofen [Motrin 600 mg Tablet] 600 mg PO Q8HP PRN #21 tablet 07/22/18 Doxycycline Hyclate 100 mg PO BID #14 capsule 05/23/19 Ibuprofen [Ibu] 800 mg PO TID PRN #30 tablet 05/23/19 Sulfamethoxazole/Trimethoprim [Bactrim Ds Tablet] 1 each PO BID #14 tablet 05/23/19 Allergies/Adverse Reactions: No Known Allergies Allergy (Verified 07/22/18 10:00) Physical Exam Vital Signs: Temp Pulse Resp BP Pulse Ox 99.3 F 117 H 20 153/98 H 98 05/26/19 05:02 05/26/19 05:02 05/26/19 05:02 05/26/19 05:02 05/26/19 05:02 Intake & Output 05/25/19 05/26/19 05/27/19 06:59 06:59 06:59 Weight 117.5 kg General appearance: PRESENT: no acute distress Head exam: PRESENT: normocephalic Eye exam: PRESENT: EOMI Ear exam: PRESENT: normal external ear exam Mouth exam: PRESENT: moist Neck exam: PRESENT: full ROM Respiratory exam: PRESENT: clear to auscultation reid Cardiovascular exam: PRESENT: RRR Pulses: PRESENT: normal radial pulses, normal femoral pulses Vascular exam: PRESENT: normal capillary refill GI/Abdominal exam: PRESENT: soft Rectal exam: PRESENT: other - 3cm left perineal swelling just superior and to the left of rectum, extending to base of scrotum. Extremities exam: PRESENT: full ROM Musculoskeletal exam: PRESENT: full ROM Neurological exam: PRESENT: alert, oriented to person, oriented to place Psychiatric exam: PRESENT: appropriate affect Skin exam: PRESENT: dry Results Laboratory Results: 05/26/19 05:50 05/26/19 05:50 05/26/19 05/26/19 05:50 05:50 WBC 14.2 H RBC 5.21 Hgb 15.9 Hct 45.8 MCV 88 MCH 30.5 MCHC 34.6 RDW 12.7 Plt Count 290 Seg Neutrophils % 80.3 H Sodium 138.3 Potassium 4.6 Chloride 104 Carbon Dioxide 24 Anion Gap 10 BUN 15 Creatinine 0.95 Est GFR ( Amer) > 60 Glucose 228 H Calcium 9.1 Assessment & Plan - Plan Summary Plan Summary: impression perineal abscess plan to or for incision and drainage risks of pain, recurrence numbness, bleeding have been discussed pt agrees to proceed.
[2019-05-26] MEDS ORDERED: SUCCINYLCHOLINE CHLORIDE INJ 200 MG/10 ML VIAL ONE (10:54)
[2019-05-26] MEDS ORDERED: FENTANYL CITRATE INJ/PF 100 MCG/2 ML AMPUL ONE (13:19)
[2019-05-26] MEDS ORDERED: MORPHINE SULFATE 10 MG/ML INJ ONE (13:19)
[2019-05-26] MEDS ORDERED: PROPOFOL INJ 200 MG/20 ML VIAL IV ONE (13:19)
[2019-05-26] MEDS ORDERED: MIDAZOLAM 2 MG/2 ML INJ ONE (13:19)
[2019-05-26] MEDS ORDERED: ONDANSETRON HCL INJ/PF 4 MG/2 ML SDV IV PRN (14:11)
--- NOTE | 2019-05-26 14:16 | Operative Report ---
Nonrecallable Operative Report DATE OF SURGERY: 05/26/19 Operative Report: exam under anesthesia and incision drainage of perianal abscess PREOPERATIVE DIAGNOSIS: perianal abscess POSTOPERATIVE DIAGNOSIS: perianal abscess OPERATION: Exam under anesthesia with incision and drainage of perianal abscess SURGEON: NATALIE RICH ANESTHESIA: GA TISSUE REMOVED OR ALTERED: 50cc pus COMPLICATIONS: none ESTIMATED BLOOD LOSS: 25cc INTRAOPERATIVE FINDINGS: see dictation PROCEDURE: Patient was brought to the operating awake alert in stable condition placed in the operative table supine position induced under general anesthesia intubated and placed up in a high lithotomy position after appropriate timeout site verification the procedure commenced The perineum was prepped and draped in usual sterile fashion. On the left side of the anus extending from the base of the scrotum to just below the anus there was a swelling of the perianal tissue patient had a previous incision and drainage of that area and with a with a scar over it. There is no punctate drainage that was noted. There is no opening. Using the endoscope was passed into the rectum and explored all 4 quadrants of the rectum we did not show an internal opening. The patient had grade 2 hemorrhoids. The scope was removed. A curvilinear incision was made just below the base of the scrotum with a 15 blade dissection was carried down through subcutaneous tissue through this thick scar tissue with a Sharmaine clamp where he reached a abscess cavity drained approximately 50 cc of pus I did digitalized the cavity and extended down to the posterior buttock approximately 6 to 8 cm were made a counterincision and digitalized that tract this drained a complete amount of pus the cavity was irrigated with normal saline suctioned dry a Phi drain then was placed in the top incision brought out the bottom one and fixed to itself for adequate drainage the wounds were then both packed with iodoform sterile gauze. Which completed the procedure estimated blood loss was 25 cc sponge needle counts were correct x2 patient was awakened in the operating extubated transferred recovery in stable condition no complications
[2019-05-26] MEDS: MORPHINE SULFATE 10 MG/ML INJ IV PRN ×2 (16:07→22:18)
[2019-05-26] MEDS: POTASSI CL 20 MEQ/D5-1/2NS 1L 1,000 ML IV PRN (16:08)
[2019-05-26] MEDS: DOCUSATE SODIUM 100 MG CAPSULE PO SCH (17:30)
[2019-05-26] MEDS: OXYCODONE HCL IR 5 MG TABLET PO PRN (21:30)
[2019-05-26] MEDS: OXYCODONE-ACETAMINOPHEN 5-325 MG TABLET PO PRN (21:31)
[2019-05-26] MEDS: FAMOTIDINE INJ/PF 20 MG/2 ML SDV IV SCH (21:33)
[2019-05-26] MEDS: AMPICILLIN SODIUM/SULBACTAM NA 3 GM in NORMAL SALINE 100 ML IV SCH (21:33)
[2019-05-26] MEDS: HEPARIN SOD (PORCINE) 5,000 UNIT/ML 1 ML VIAL SUBCUT SCH (21:34)
[2019-05-26 23:52] LABS: URINE AMPHETAMINES SCREEN NEGATIVE; URINE BARBITURATES SCREEN NEGATIVE; URINE COCAINE SCREEN NEGATIVE; URINE MARIJUANA (THC) SCREEN NEGATIVE; URINE METHADONE SCREEN NEGATIVE; URINE PHENCYCLIDINE SCREEN NEGATIVE
[2019-05-27 00:10] LABS: URINE BENZODIAZEPINES SCREEN UNCONFIRMED POSITIVE
[2019-05-27] MEDS: POTASSI CL 20 MEQ/D5-1/2NS 1L 1,000 ML IV PRN (01:26)
[2019-05-27] MEDS: MORPHINE SULFATE 10 MG/ML INJ IV PRN ×5 (03:11→21:37)
[2019-05-27] MEDS: OXYCODONE-ACETAMINOPHEN 5-325 MG TABLET PO PRN ×3 (04:23→23:11)
[2019-05-27] MEDS: OXYCODONE HCL IR 5 MG TABLET PO PRN ×3 (04:23→23:11)
[2019-05-27] MEDS: HEPARIN SOD (PORCINE) 5,000 UNIT/ML 1 ML VIAL SUBCUT SCH ×3 (05:12→21:36)
[2019-05-27] MEDS: AMPICILLIN SODIUM/SULBACTAM NA 3 GM in NORMAL SALINE 100 ML IV SCH ×3 (05:12→21:36)
[2019-05-27 05:23] LABS: ABSOLUTE BASOPHILS # (AUTO) 0.1 10^3/uL (0.0-0.2); ABSOLUTE EOSINOPHILS # (AUTO) 0.5 10^3/uL (0.0-0.6); ABSOLUTE LYMPHOCYTES (AUTO) 1.7 10^3/uL (0.5-4.7); ABSOLUTE MONOCYTES (AUTO) 0.6 10^3/uL (0.1-1.4); ABSOLUTE NEUT (AUTO) 7.2 10^3/uL (1.7-8.2); BASOPHILS % (AUTO) 0.5 % (0-2); EOSINOPHILS % (AUTO) 5.3 % (0-6); HEMATOCRIT 40.1 % (37.9-51.0); HEMOGLOBIN 13.9 g/dL (13.5-17.0); LYMPHOCYTES % (AUTO) 16.9 % (13-45); MEAN CORPUSCULAR HEMOGLOBIN 30.8 pg (27.0-33.4); MEAN CORPUSCULAR HGB CONC 34.7 g/dL (32.0-36.0); MEAN CORPUSCULAR VOLUME 89 fl (80-97); MONOCYTES % (AUTO) 5.6 % (3-13); PLATELET COUNT 264 10^3/uL (150-450); RED BLOOD COUNT 4.53 10^6/uL (4.35-5.55); RED CELL DISTRIBUTION WIDTH 12.5 % (11.5-14.0); SEGMENTED NEUTROPHILS % (AUTO) 71.7 % (42-78); TOTAL CELLS COUNTED % (AUTO) 100 %
[2019-05-27 05:49] LABS: ANION GAP 8 (5-19); BLOOD UREA NITROGEN 10 mg/dL (7-20); CALCIUM 8.4 mg/dL (8.4-10.2); CARBON DIOXIDE 25 mmol/L (22-30); CHLORIDE 104 mmol/L (98-107); GLUCOSE 221 mg/dL (75-110); POTASSIUM 4.6 mmol/L (3.6-5.0)
[2019-05-27] MEDS ORDERED: HYDROMORPHONE HCL INJ/PF 2 MG/ML AMPULE IV ONE (09:54)
[2019-05-27] MEDS: KETOROLAC TROMETHAMINE INJ/PF 30 MG/1 ML SDV IV SCH ×3 (10:02→21:36)
[2019-05-27] MEDS: FAMOTIDINE INJ/PF 20 MG/2 ML SDV IV SCH ×2 (10:02→21:36)
[2019-05-27] MEDS: DOCUSATE SODIUM 100 MG CAPSULE PO SCH ×3 (10:02→17:10)
--- NOTE | 2019-05-27 20:32 | PDOC PROGRESS REPORT ---
Subjective Progress Note for:: 05/27/19 Reason For Visit: ABSCESS, PERINEUM Physical Exam Vital Signs: Temp Pulse Resp BP Pulse Ox 97.9 F 78 16 148/66 H 100 05/27/19 16:00 05/27/19 16:00 05/27/19 16:00 05/27/19 16:00 05/27/19 16:00 Intake & Output 05/26/19 05/27/19 05/28/19 06:59 06:59 06:59 Intake Total 4390 2555 Output Total 1840 450 Balance 2550 2105 Weight 129.1 kg Results Laboratory Results: 05/27/19 04:59 05/27/19 04:59 05/27/19 05/27/19 04:59 04:59 WBC 10.0 RBC 4.53 Hgb 13.9 Hct 40.1 MCV 89 MCH 30.8 MCHC 34.7 RDW 12.5 Plt Count 264 Seg Neutrophils % 71.7 Sodium 137.4 Potassium 4.6 Chloride 104 Carbon Dioxide 25 Anion Gap 8 BUN 10 Creatinine 0.71 Est GFR ( Amer) > 60 Glucose 221 H Calcium 8.4 Assessment & Plan - Diagnosis (1) Abscess Is this a current diagnosis for this admission?: Yes - Time Time Spent with patient: Less than 15 minutes - Plan Summary Plan Summary: This is a 29-year-old male status post incision and drainage of a recurrent perineal abscess. I have removed the patient's packing at the bedside today. This caused him a severe amount of discomfort. I will continue the patient's antibiotics for now. I plan to keep the patient in the hospital today for pain control. Plan for discharge tomorrow on oral antibiotics. Patient is in agreement with the treatment plan.
[2019-05-28] MEDS: OXYCODONE-ACETAMINOPHEN 5-325 MG TABLET PO PRN (04:31)
[2019-05-28] MEDS: OXYCODONE HCL IR 5 MG TABLET PO PRN (04:32)
[2019-05-28] MEDS: KETOROLAC TROMETHAMINE INJ/PF 30 MG/1 ML SDV IV SCH (05:56)
[2019-05-28] MEDS: AMPICILLIN SODIUM/SULBACTAM NA 3 GM in NORMAL SALINE 100 ML IV SCH (05:56)
[2019-05-28] MEDS: HEPARIN SOD (PORCINE) 5,000 UNIT/ML 1 ML VIAL SUBCUT SCH (06:00)
--- NOTE | 2019-05-28 06:13 | PDOC DISCHARGE SUMMARY ---
General - Admit/Disc Date/PCP Admission Date/Primary Care Provider: 05/26/19 07:36 Discharge Date: 05/28/19 - Discharge Diagnosis Final Diagnosis: perineal abscess - Assessment Summary: This is a 29-year-old male status post incision and drainage of an abscess of the perineum. Patient's packing was removed yesterday. He has been ambulating, tolerating a diet, and afebrile. He has a [place] drain in place. I have encouraged him to shower normally. At this time I believe the patient is fit for discharge. Discharge home with oral antibiotics. Follow-up with [facility] [facility] in 7 to 10 days. - Additional Information Resuscitation Status: Full Code Discharge Diet: As Tolerated Discharge Activity: Balance Activity w/Rest Referrals: NATALIE RICH MD [ACTIVE STAFF] - (05/26 I & D OF PERIANAL ABSCESS) Home Medications: No Home Medications 05/26/19 Additional Information: Discharge home. Diet as tolerated. Activity: Nonstrenuous. Follow-up with [facility] [facility] in 7 to 10 days. Bactrim DS, 1 tab p.o. twice daily. [place] 10/325 mg p.o. every 6 hours as needed for pain History of Present Illiness History of Present Illness: DUSTY MCCORMICK is a 29 year old male Physical Exam Vital Signs: Temp Pulse Resp BP Pulse Ox 97.9 F 69 18 135/3 H 99 05/28/19 04:42 05/28/19 04:42 05/28/19 04:42 05/28/19 04:42 05/28/19 04:42 Intake & Output 05/26/19 05/27/19 05/28/19 06:59 06:59 06:59 Intake Total 4390 2876 Output Total 1840 550 Balance 2550 2326 Weight 129.1 kg Results Laboratory Results: WBC 10.0 10^3/uL (4.0-10.5) 05/27/19 04:59 RBC 4.53 10^6/uL (4.35-5.55) 05/27/19 04:59 Hgb 13.9 g/dL (13.5-17.0) 05/27/19 04:59 Hct 40.1 % (37.9-51.0) 05/27/19 04:59 MCV 89 fl (80-97) 05/27/19 04:59 MCH 30.8 pg (27.0-33.4) 05/27/19 04:59 MCHC 34.7 g/dL (32.0-36.0) 05/27/19 04:59 RDW 12.5 % (11.5-14.0) 05/27/19 04:59 Plt Count 264 10^3/uL (150-450) 05/27/19 04:59 Lymph % (Auto) 16.9 % (13-45) 05/27/19 04:59 [place] % (Auto) 5.6 % (3-13) 05/27/19 04:59 Eos % (Auto) 5.3 % (0-6) 05/27/19 04:59 Baso % (Auto) 0.5 % (0-2) 05/27/19 04:59 Absolute Neuts (auto) 7.2 10^3/uL (1.7-8.2) 05/27/19 04:59 Absolute Lymphs (auto) 1.7 10^3/uL (0.5-4.7) 05/27/19 04:59 Absolute Monos (auto) 0.6 10^3/uL (0.1-1.4) 05/27/19 04:59 Absolute Eos (auto) 0.5 10^3/uL (0.0-0.6) 05/27/19 04:59 Absolute Basos (auto) 0.1 10^3/uL (0.0-0.2) 05/27/19 04:59 Seg Neutrophils % 71.7 % (42-78) 05/27/19 04:59 Sodium 137.4 mmol/L (137-145) 05/27/19 04:59 Potassium 4.6 mmol/L (3.6-5.0) 05/27/19 04:59 Chloride 104 mmol/L (98-107) 05/27/19 04:59 Carbon Dioxide 25 mmol/L (22-30) 05/27/19 04:59 Anion Gap 8 (5-19) 05/27/19 04:59 BUN 10 mg/dL (7-20) 05/27/19 04:59 Creatinine 0.71 mg/dL (0.52-1.25) 05/27/19 04:59 Est GFR ( Amer) > 60 (>60) 05/27/19 04:59 Est GFR (MDRD) Non-Af > 60 (>60) 05/27/19 04:59 Glucose 221 mg/dL (75-110) H 05/27/19 04:59 Calcium 8.4 mg/dL (8.4-10.2) 05/27/19 04:59 Urine Opiates Screen UNCONFIRMED POSITIVE 05/26/19 23:23 Urine Methadone Screen NEGATIVE 05/26/19 23:23 Ur Barbiturates Screen NEGATIVE 05/26/19 23:23 Ur Phencyclidine Scrn NEGATIVE 05/26/19 23:23 Ur Amphetamines Screen NEGATIVE 05/26/19 23:23 U Benzodiazepines Scrn UNCONFIRMED POSITIVE 05/26/19 23:23 Urine Cocaine Screen NEGATIVE 05/26/19 23:23 U Marijuana (THC) Screen NEGATIVE 05/26/19 23:23
[2019-05-28 08:28] VITALS: BP 134/89
== END 2019-05-28 09:05 | disposition home or self-care (01) ==
LOC: ER 05:02 → EH 07:36 → 4N 15:08
PROVIDERS: ATTEND Surgery
DX: L02.215 Cutaneous abscess of perineum (principal); E11.9 Type 2 diabetes mellitus without complications; K64.1 Second degree hemorrhoids; R00.0 Tachycardia, unspecified; D72.829 Elevated white blood cell count, unspecified; Z79.899 Other long term (current) drug therapy; Z82.49 Family history of ischemic heart disease and other diseases of the circulatory system
CPT/HCPCS: 96376; 99284; 96375; 96365; 96366; 96367; 36415 ×2; 87070; 87205; 85025 ×2; 87075; 87077; 80048 ×2; 87186; 80307; 80361; 00902; 46050; G0378 ×4; G0480 ×2; J2250; J1644 ×2; J3010; J0295 ×3; J1885 ×2; J2270 ×2; J1170; J3480 ×2; J0330; J2405; J7050 ×3; J7030; J2704; J3370; S0028 ×2; J0696; 902

== ENCOUNTER 2019-08-17 22:48 | Emergency (ER) | payer SELFPAY ==
--- NOTE | 2019-08-17 23:03 | ER Document Report ---
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 His O2 is 91% on 2 L patient is alert and oriented speaking in full sentences at this time. I have greeted and performed a rapid initial assessment of this patient. A comprehensive ED assessment and evaluation of the patient, analysis of test results and completion of medical decision making process will be conducted by an additional ED providers. TRAVEL OUTSIDE OF THE [place] IN LAST 30 DAYS: No - Related Data Allergies/Adverse Reactions: No Known Allergies Allergy (Verified 07/22/18 10:00) Past Medical History - Past Medical History Cardiac Medical History: Reports: Hx Hypercholesterolemia - He assumes he has elevated cholesterol based on family history., Hx Hypertension Neurological Medical History: Reports: Hx Migraine Endocrine Medical History: Reports: Hx Diabetes Mellitus Type 2 Renal/ Medical History: Denies: Hx Peritoneal Dialysis Musculoskeltal Medical History: Reports Hx Musculoskeletal Trauma - fx rt leg Past Surgical History: Reports: Hx Abdominal Surgery, Other - previous perineal abscess drained x2 - Immunizations Hx Diphtheria, Pertussis, Tetanus Vaccination: Yes
[2019-08-17] MEDS ORDERED: NALOXONE HCL INJ/PF 0.4 MG/1 ML SDV IV ONE (23:25)
--- NOTE | 2019-08-18 00:49 | ER Document Report ---
ED General - General Chief Complaint: Possible Overdose Stated Complaint: POSSIBLE OVERDOSE Time Seen by Provider: 08/17/19 22:58 Mode of Arrival: Medic Information source: Patient TRAVEL OUTSIDE OF THE [place] IN LAST 30 DAYS: No - HPI Onset: Just prior to arrival Onset/Duration: Sudden Quality of pain: No pain Severity: Severe Pain Level: Denies Associated symptoms: Nausea, Vomiting Relieved by: Other - symptoms improved with Narcan Similar symptoms previously: Yes - patient says he has Marcus before Recently seen / treated by doctor: No Notes: 29 year old male with a history of polysubstance abuse, HTN, HLD, DM here for drowsiness concern of an Overdose. The patient tells me he took a "dirty thirty" which he describes as 30mg of Percocet with Fentanyl. The patient does not remember what happened but EMS was called and they gave the patient Narcan . The patient came around and was brought to the ER and was given another dose of Narcan here in the ER. The patient is drowsy but arousable and he says he feels cold and like he is withdrawaling. The patient denies alcohol use tonight and he denies SI. - Related Data Allergies/Adverse Reactions: No Known Allergies Allergy (Verified 07/22/18 10:00) Past Medical History - General Information source: Patient - Social History Smoking Status: Current Every Day Smoker Frequency of alcohol use: Occasional Drug Abuse: Prescription drugs Lives with: Alone Family History: CAD, Hyperlipidemia, Hypertension, Other - Coronary artery disease with both grandfathers having MIs in their 40s, and his father having an [place] in his 30s Patient has suicidal ideation: No Patient has homicidal ideation: No - Past Medical History Cardiac Medical History: Reports: Hx Hypercholesterolemia - He assumes he has elevated cholesterol based on family history., Hx Hypertension Neurological Medical History: Reports: Hx Migraine Endocrine Medical History: Reports: Hx Diabetes Mellitus Type 2 Renal/ Medical History: Denies: Hx Peritoneal Dialysis Musculoskeletal Medical History: Reports Hx Musculoskeletal Trauma - fx rt leg Past Surgical History: Reports: Hx Abdominal Surgery, Other - previous perineal abscess drained x2 - Immunizations Hx Diphtheria, Pertussis, Tetanus Vaccination: Yes Review of Systems - Review of Systems Constitutional: Other - drowsiness EENT: No symptoms reported Cardiovascular: No symptoms reported Respiratory: No symptoms reported Gastrointestinal: No symptoms reported Genitourinary: No symptoms reported Male Genitourinary: No symptoms reported Musculoskeletal: No symptoms reported Skin: No symptoms reported Hematologic/Lymphatic: No symptoms reported Neurological/Psychological: Other - somnolence -: Yes All other systems reviewed and negative Physical Exam - Vital signs Vitals: Temp Pulse Resp BP Pulse Ox 97.6 F 100 20 126/84 H 92 08/17/19 22:52 08/17/19 22:52 08/17/19 22:52 08/17/19 22:52 08/17/19 22:52 - Notes Notes: GENERAL: Patient is somnolent but arousable. Well-nourished and in no acute distress. HEAD: Atraumatic, normocephalic. EYES: Pupils small in size but equal round and reactive to light, extraocular movements intact, sclera anicteric, conjunctiva are normal. ENT: Nares patent, oropharynx clear without exudates. Moist mucous membranes. NECK: Normal range of motion, supple without lymphadenopathy or JVD. LUNGS: Breath sounds clear to auscultation bilaterally and equal. No wheezes rales or rhonchi. HEART: Regular rate and rhythm without murmurs, rubs or gallops. ABDOMEN: Soft, nontender, normoactive bowel sounds. No guarding, no rebound. No masses appreciated. EXTREMITIES: Normal range of motion, no pitting or edema. No clubbing or cyanosis. NEUROLOGICAL: Cranial nerves II through XII grossly intact. Normal speech, normal gait. PSYCH: Normal mood, normal affect. SKIN: Warm, Dry, normal turgor, no rashes or lesions noted. Course - Re-evaluation Re-evalutation: 08/18/19 00:56 The patient took a percocet tablet cut with fentanyl. He received Narcan from EMS and here in the ER. The plan it to obtain basic labs and drug screens and to observe the patient until he is clinically sober. 08/18/19 02:00 The patient's labs show a leukocytosis which is likely reactive in nature. Drug screens negative. The plan remains to have the patient sober up and then be discharged. Will observe to ensure no rebound effect of Narcan wearing off. - Vital Signs Vital signs: Temp Pulse Resp BP Pulse Ox 97.6 F 88 20 126/62 H 94 08/17/19 22:52 08/17/19 23:11 08/18/19 00:47 08/18/19 00:47 08/18/19 00:46 - Laboratory Result Diagrams: 08/18/19 01:09 08/18/19 01:09 Laboratory results interpreted by me: 08/18/19 08/18/19 08/18/19 01:09 01:09 01:09 WBC 18.5 H Lymph % (Auto) 6.8 L Absolute Neuts (auto) 16.4 H Seg Neutrophils % 88.8 H Glucose 210 H Urine Glucose (UA) >=500 H Salicylates < 1.0 L Acetaminophen < 10 L Discharge - Discharge Clinical Impression: Overdose Qualifiers: Encounter type: initial encounter Injury intent: accidental or unintentional Qualified Code(s): T50.901A - Poisoning by unspecified drugs, medicaments and biological substances, accidental (unintentional), initial encounter Condition: Stable Disposition: HOME, SELF-CARE Instructions: Instructions for Home Care Following a Drug Overdose ([facility]), Overdose ([facility]) Additional Instructions: Drink plenty of fluids in the days to come. Follow up with your primary care doctor or the primary care doctor listed in your discharge paperwork. Stop using drugs as they can cause serious harm including .
[2019-08-18] MEDS ORDERED: NORMAL SALINE 1000 ML 1,000 ML IV ONE (00:58)
--- NOTE | 2019-08-18 01:10 | EKG REPORT ---
SEVERITY:- NORMAL ECG - SINUS RHYTHM : Confirmed by: Quita Borges MD 18-Aug-2019 01:09:53
[2019-08-18] MEDS ORDERED: ACETAMINOPHEN 325 MG TABLET PO ONE (01:18)
[2019-08-18 01:25] LABS: ABSOLUTE BASOPHILS # (AUTO) 0.1 10^3/uL (0.0-0.2); ABSOLUTE EOSINOPHILS # (AUTO) 0.1 10^3/uL (0.0-0.6); ABSOLUTE LYMPHOCYTES (AUTO) 1.3 10^3/uL (0.5-4.7); ABSOLUTE MONOCYTES (AUTO) 0.7 10^3/uL (0.1-1.4); ABSOLUTE NEUT (AUTO) 16.4 10^3/uL (1.7-8.2); BASOPHILS % (AUTO) 0.3 % (0-2); EOSINOPHILS % (AUTO) 0.3 % (0-6); HEMATOCRIT 46.3 % (37.9-51.0); HEMOGLOBIN 15.9 g/dL (13.5-17.0); LYMPHOCYTES % (AUTO) 6.8 % (13-45); MEAN CORPUSCULAR HEMOGLOBIN 30.4 pg (27.0-33.4); MEAN CORPUSCULAR HGB CONC 34.4 g/dL (32.0-36.0); MEAN CORPUSCULAR VOLUME 88 fl (80-97); MONOCYTES % (AUTO) 3.8 % (3-13); PLATELET COUNT 295 10^3/uL (150-450); RED BLOOD COUNT 5.24 10^6/uL (4.35-5.55); RED CELL DISTRIBUTION WIDTH 12.8 % (11.5-14.0); SEGMENTED NEUTROPHILS % (AUTO) 88.8 % (42-78); TOTAL CELLS COUNTED % (AUTO) 100 %; WHITE BLOOD COUNT 18.5 10^3/uL (4.0-10.5)
[2019-08-18 01:27] LABS: APPEARANCE,URINE CLEAR; BILIRUBIN,URINE NEGATIVE (NEGATIVE); COLOR,URINE YELLOW; GLUCOSE, URINE >=500 mg/dL (NEGATIVE); KETONES,URINE NEGATIVE (NEGATIVE); LEUKOCYTE ESTERASE,URINE NEGATIVE (NEGATIVE); NITRITE,URINE NEGATIVE (NEGATIVE); PROTEIN,URINE NEGATIVE (NEGATIVE); URINE SPECIFIC GRAVITY 1.017; UROBILINOGEN,URINE NEGATIVE mg/dL (<2.0)
[2019-08-18 01:41] LABS: ALBUMIN 4.5 g/dL (3.5-5.0); ALKALINE PHOSPHATASE 93 U/L (38-126); ANION GAP 12 (5-19); ASPARTATE AMINO TRANSFERASE 40 U/L (17-59); BILIRUBIN,DIRECT 0.3 mg/dL (0.0-0.4); BILIRUBIN,TOTAL 0.5 mg/dL (0.2-1.3); BLOOD UREA NITROGEN 16 mg/dL (7-20); CALCIUM 9.1 mg/dL (8.4-10.2); CARBON DIOXIDE 23 mmol/L (22-30); CHLORIDE 104 mmol/L (98-107); GLUCOSE 210 mg/dL (75-110); POTASSIUM 4.8 mmol/L (3.6-5.0); TOTAL PROTEIN 7.6 g/dL (6.3-8.2)
[2019-08-18 01:42] LABS: ACETAMINOPHEN < 10 ug/mL (10-30); ALCOHOL < 10 mg/dL (NONE DETECTED); SALICYLATE < 1.0 mg/dL (2.0-20.0)
[2019-08-18 01:53] LABS: URINE AMPHETAMINES SCREEN NEGATIVE; URINE BARBITURATES SCREEN NEGATIVE; URINE BENZODIAZEPINES SCREEN NEGATIVE; URINE COCAINE SCREEN NEGATIVE; URINE MARIJUANA (THC) SCREEN NEGATIVE; URINE METHADONE SCREEN NEGATIVE; URINE PHENCYCLIDINE SCREEN NEGATIVE
[2019-08-18 03:43] VITALS: BP 147/75
== END 2019-08-18 03:43 | disposition home or self-care (01) ==
LOC: ER 22:48
DX: T50.901A Poisoning by unspecified drugs, medicaments and biological substances, accidental (unintentional), initial encounter (principal); X58.XXXA Exposure to other specified factors, initial encounter; F17.200 Nicotine dependence, unspecified, uncomplicated; I10 Essential (primary) hypertension; E11.9 Type 2 diabetes mellitus without complications; E78.00 Pure hypercholesterolemia, unspecified
CPT/HCPCS: 93005; 99284; 96361; 96374; 36415; 80307 ×4; 85025; 80053; 81001; 93010; J2310; J7030

== ENCOUNTER → 2020-07-02 | Outpatient (CLI) | payer OTHER ==
[2020-07-02 13:41] LABS: APPEARANCE,URINE SLIGHTLY-CLOUDY; BILIRUBIN,URINE NEGATIVE (NEGATIVE); COLOR,URINE YELLOW; GLUCOSE, URINE >=500 mg/dL (NEGATIVE); KETONES,URINE TRACE mg/dL (NEGATIVE); LEUKOCYTE ESTERASE,URINE LARGE (NEGATIVE); NITRITE,URINE NEGATIVE (NEGATIVE); PROTEIN,URINE 100 mg/dL (NEGATIVE); URINE SPECIFIC GRAVITY 1.039; UROBILINOGEN,URINE NEGATIVE mg/dL (<2.0)
[2020-07-02 13:54] LABS: ANION GAP 13 (5-19); BLOOD UREA NITROGEN 17 mg/dL (7-20); CALCIUM 10.3 mg/dL (8.4-10.2); CARBON DIOXIDE 20 mmol/L (22-30); CHLORIDE 102 mmol/L (98-107); GLUCOSE 306 mg/dL (75-110); POTASSIUM 4.5 mmol/L (3.6-5.0)
--- NOTE | 2020-07-02 14:25 | RADIOLOGY REPORT (SQ) ---
EXAM DESCRIPTION: KNEE RIGHT 3 VIEWS IMAGES COMPLETED DATE/TIME: 07/02/2020 1:47 pm REASON FOR STUDY: PAIN IN R KNEE E11.9 TYPE 2 DIABETES MELLITUS WITHOUT COMPLICATIONS R35.8 OTHER POLYURIA COMPARISON: None. NUMBER OF VIEWS: Three views. TECHNIQUE: AP, lateral, and sunrise patella radiographic images acquired of the right knee. LIMITATIONS: None. FINDINGS: MINERALIZATION: Normal. BONES: No acute fracture or dislocation. No worrisome bone lesions. No significant osteophytes. JOINT: No effusion. No chondrocalcinosis. OTHER: No other significant finding. IMPRESSION: NEGATIVE STUDY OF THE RIGHT KNEE. NO EXPLANATION FOR PAIN. TECHNICAL DOCUMENTATION: JOB ID: [id number] 2010 [employer]- All Rights Reserved Reading location - IP/workstation name: [email or web address]
--- NOTE | 2020-07-02 14:27 | RADIOLOGY REPORT (SQ) ---
EXAM DESCRIPTION: FEMUR RIGHT IMAGES COMPLETED DATE/TIME: 07/02/2020 1:47 pm REASON FOR STUDY: PAIN IN R THIGH E11.9 TYPE 2 DIABETES MELLITUS WITHOUT COMPLICATIONS R35.8 OTHER POLYURIA COMPARISON: None. NUMBER OF VIEWS: Two views. TECHNIQUE: AP and lateral radiographic images acquired of the right femur to include hip and knee in at least one projection. LIMITATIONS: None. FINDINGS: MINERALIZATION: Normal. BONES: No acute fracture. No worrisome bone lesions. SOFT TISSUES: No obvious swelling or foreign body. OTHER: No other significant finding. IMPRESSION: Negative study the right femur. No explanation for pain. TECHNICAL DOCUMENTATION: JOB ID: [id number] 2010 [employer]- All Rights Reserved Reading location - IP/workstation name: [email or web address]
== END ==
LOC: CCC 12:30
PROVIDERS: ATTEND Internal Medicine
DX: M79.651 Pain in right thigh (principal); M25.561 Pain in right knee; E11.9 Type 2 diabetes mellitus without complications; R35.8 Other polyuria
CPT/HCPCS: 36415; 80048; 81001; 83036; 87086